=== PATIENT | male | born 1960 | race Caucasian/White ===

== ENCOUNTER 2016-09-11 12:46 | Emergency (ER) | payer MEDICAID | END 2016-09-11 16:02 | disposition home or self-care (01) | LOC: D.ER 12:46 | DX: G56.02 Carpal tunnel syndrome, left upper limb (principal); I10 Essential (primary) hypertension; F17.200 Nicotine dependence, unspecified, uncomplicated ==

== ENCOUNTER 2016-11-20 10:31 | Emergency (ER) | payer MEDICAID ==
[2016-11-20 11:53] LABS: BASOPHILS 0.5 % (0.0-2.0); EOSINOPHILS 6.9 % (0-7); HEMATOCRIT 46.4 % (42.0-54.0); HEMOGLOBIN 15.9 g/dL (13.5-17.5); IMMATURE GRANULOCYTES 0.4 % (0-5); LYMPHOCYTES 26.3 % (15-50); MCH 30.9 pg (26.0-34.0); MCHC 34.3 g/dL (31.0-37.0); MCV 90.1 fL (80.0-100.0); MEAN PLATELET VOLUME 9.1 fL (7.4-10.4); MONOCYTES 9.2 % (2-11); NEUTROPHILS 56.7 % (40-80); PLATELET COUNT 235 10x3/uL (130-400); RBC 5.15 10x6/uL (4.20-6.10); RDW 11.9 % (11.5-14.5); WBC 8.6 10x3/uL (4.8-10.8)
[2016-11-20 12:08] LABS: ALBUMIN 3.9 g/dL (3.4-5.0); BILIRUBIN - TOTAL 0.28 mg/dL (0.2-1.3); CALCIUM 9.6 mg/dL (8.5-10.1); CARBON DIOXIDE 30.3 mmol/L (21.0-32.0); CREATININE - SERUM 1.1 mg/dL (0.6-1.3); POTASSIUM - SERUM 4.3 mmol/L (3.5-5.1); PROTEIN - SERUM 7.9 g/dL (6.4-8.2)
== END 2016-11-20 13:30 | disposition home or self-care (01) ==
LOC: D.ER 10:31
PROVIDERS: Family Medicine
DX: J06.9 Acute upper respiratory infection, unspecified (principal); J20.9 Acute bronchitis, unspecified; I10 Essential (primary) hypertension

== ENCOUNTER 2019-03-29 21:25 | Emergency (ER) | payer MEDICAID ==
[~2019-03-29] VITALS: Ht 188 cm; Wt 127.3 kg
[2019-03-29 21:35] VITALS: Ht 188 cm; Wt 127.3 kg
[2019-03-29] MEDS ORDERED: PRINIVIL20 MG PO (21:36)
[2019-03-29] MEDS ORDERED: METOPROLOL TART50 MG PO (21:36)
[2019-03-29] MEDS ORDERED: NORVASC5 MG PO (21:37)
[2019-03-29] MEDS ORDERED: HCTZ25 MG PO (21:37)
[2019-03-29 22:44] LABS: BASOPHILS 0.3 % (0-2); EOSINOPHILS 7.4 % (0-7); HEMATOCRIT 40.7 % (42.0-54.0); HEMOGLOBIN 14.1 g/dL (13.5-17.5); IMMATURE GRANULOCYTES 0.1 % (0-5); LYMPHOCYTES 36.4 % (15-50); MCH 31.1 pg (26.0-34.0); MCHC 34.6 g/dL (31.0-37.0); MCV 89.6 fL (80.0-100.0); MEAN PLATELET VOLUME 9.4 fL (7.4-10.4); MONOCYTES 6.1 % (2-11); NEUTROPHILS 49.7 % (40-80); PLATELET COUNT 205 10x3/uL (130-400); RBC 4.54 10x6/uL (4.20-6.10); WBC 7.2 10x3/uL (4.8-10.8)
[2019-03-29 22:59] LABS: ALBUMIN 3.8 g/dL (3.4-5.0); ALKALINE PHOSPHATASE 91 U/L (46-116); ALT (SGPT) 24 U/L (10-68); BILIRUBIN - TOTAL 0.25 mg/dL (0.2-1.3); CALC OSMOLALITY 292 mosm/kg (275-300); CALCIUM 8.6 mg/dL (8.5-10.1); CHLORIDE - SERUM 108 mmol/L (98-107); CREATININE - SERUM 2.1 mg/dL (0.6-1.3); GLUCOSE 91 mg/dL (74-106); POTASSIUM - SERUM 4.4 mmol/L (3.5-5.1); PROTEIN - SERUM 7.7 g/dL (6.4-8.2); SODIUM 143 mmol/L (136-145); UREA NITROGEN 36 mg/dL (7-18); eGFR NON AFRICAN AMERICAN 34 mL/min (90-120)
[2019-03-29 23:13] LABS: CKMB 1.5 U/L (0.0-3.6); CREATINE KINASE 103 UL (21-232); PRO BNP 436 pg/mL (0-125); TROPONIN-I < 0.017 ng/mL (0.000-0.060)
[2019-03-29] MEDS ORDERED: LEVAQUIN750 MG PO (23:48)
[2019-03-30 00:11] VITALS: BP 138/94
== END 2019-03-30 00:12 | disposition home or self-care (01) ==
LOC: D.ER 21:25
PROVIDERS: Emergency Medicine
DX: J18.9 Pneumonia, unspecified organism (principal)

== ENCOUNTER 2019-10-31 23:32 | Emergency (ER) | payer MEDICAID ==
[~2019-10-31] VITALS: Ht 188 cm; Wt 131.8 kg
[~2019-10-31 23:32] MED LIST: HCTZ25 MG PO; LEVAQUIN750 MG PO; METOPROLOL TART50 MG PO; NORVASC5 MG PO; PRINIVIL20 MG PO
[2019-10-31 23:38] VITALS: Ht 188 cm; Wt 131.8 kg
[2019-11-01 00:18] LABS: BASOPHILS 0.5 % (0-2); EOSINOPHILS 6.1 % (0-7); HEMATOCRIT 39.1 % (42.0-54.0); HEMOGLOBIN 13.6 g/dL (13.5-17.5); IMMATURE GRANULOCYTES 0.4 % (0-5); LYMPHOCYTES 30.2 % (15-50); MCHC 34.8 g/dL (31.0-37.0); MCV 89.1 fL (80.0-100.0); MEAN PLATELET VOLUME 9.1 fL (7.4-10.4); MONOCYTES 8.1 % (2-11); NEUTROPHILS 54.7 % (40-80); PLATELET COUNT 311 10x3/uL (130-400); RBC 4.39 10x6/uL (4.20-6.10); RDW 11.9 % (11.5-14.5); WBC 8.2 10x3/uL (4.8-10.8)
[2019-11-01 00:29] LABS: APTT 29.7 SECONDS (22.8-39.4); INR 0.95 (0.85-1.17); PROTIME 12.6 SECONDS (11.6-15.0)
[2019-11-01 00:30] LABS: CALCIUM 8.8 mg/dL (8.5-10.1); CARBON DIOXIDE 25.9 mmol/L (21.0-32.0); CREATININE - SERUM 2.3 mg/dL (0.6-1.3); POTASSIUM - SERUM 3.9 mmol/L (3.5-5.1)
[2019-11-01 00:35] LABS: ALBUMIN 3.6 g/dL (3.4-5.0); BILIRUBIN - TOTAL 0.24 mg/dL (0.2-1.3); PROTEIN - SERUM 7.7 g/dL (6.4-8.2)
[2019-11-01] MEDS ORDERED: CLEOCIN HCL150 MG PO (00:49)
[2019-11-01] MEDS ORDERED: BUMEX2 MG PO (00:49)
[2019-11-01] MEDS ORDERED: K-TAB10 MEQ PO (00:49)
[2019-11-01 02:02] VITALS: BP 159/94
== END 2019-11-01 02:03 | disposition home or self-care (01) ==
LOC: D.ER 23:32
PROVIDERS: Emergency Medicine
DX: R60.9 Edema, unspecified (principal); S80.811A Abrasion, right lower leg, initial encounter; L08.9 Local infection of the skin and subcutaneous tissue, unspecified; N18.9 Chronic kidney disease, unspecified; I10 Essential (primary) hypertension; Z86.73 Personal history of transient ischemic attack (TIA), and cerebral infarction without residual deficits; Z72.0 Tobacco use; K21.9 Gastro-esophageal reflux disease without esophagitis

== ENCOUNTER 2020-03-28 00:13 | Inpatient (IN) | payer MEDICAID ==
[2020-03-28] VITALS (10 sets, daily range): BP systolic 99–169; BP diastolic 64–102; Ht 188 cm; Wt 133.5 kg
[~2020-03-28] VITALS: Ht 188 cm; Wt 133.5 kg
[~2020-03-28 00:13] MED LIST changes: +BUMEX2 MG PO; +CLEOCIN HCL150 MG PO; +K-TAB10 MEQ PO
[2020-03-28 00:51] LABS: BASOPHILS 0.4 % (0-2); EOSINOPHILS 5.4 % (0-7); HEMATOCRIT 44.9 % (42.0-54.0); HEMOGLOBIN 14.3 g/dL (13.5-17.5); IMMATURE GRANULOCYTES 0.4 % (0-5); LYMPHOCYTES 26.2 % (15-50); MCHC 31.8 g/dL (31.0-37.0); MCV 94.1 fL (80.0-100.0); MEAN PLATELET VOLUME 8.8 fL (7.4-10.4); NEUTROPHILS 57.6 % (40-80); PLATELET COUNT 293 10x3/uL (130-400); RBC 4.77 10x6/uL (4.20-6.10); RDW 12.5 % (11.5-14.5); WBC 7.8 10x3/uL (4.8-10.8)
[2020-03-28 01:02] LABS: CALC OSMOLALITY 293 mosm/kg (275-300); CALCIUM 8.4 mg/dL (8.5-10.1); CARBON DIOXIDE 30.4 mmol/L (21.0-32.0); CHLORIDE - SERUM 108 mmol/L (98-107); CREATININE - SERUM 1.8 mg/dL (0.6-1.3); GLUCOSE 137 mg/dL (74-106); POTASSIUM - SERUM 3.9 mmol/L (3.5-5.1); SODIUM 143 mmol/L (136-145); UREA NITROGEN 32 mg/dL (7-18); eGFR NON AFRICAN AMERICAN 41 mL/min (90-120)
[2020-03-28 01:14] LABS: ALBUMIN 3.3 g/dL (3.4-5.0); ALKALINE PHOSPHATASE 114 U/L (30-120); ALT (SGPT) 24 U/L (10-68); AMYLASE - SERUM 59 U/L (25-115); LIPASE 278 U/L (73-393); PROTEIN - SERUM 7.3 g/dL (6.4-8.2); TROPONIN-I < 0.017 ng/mL (0.000-0.060)
[2020-03-28 01:49] LABS: BILIRUBIN NEGATIVE (NEGATIVE); GLUCOSE 50 mg/dL (NEGATIVE); KETONE NEGATIVE (NEGATIVE); NITRITE NEGATIVE (NEGATIVE); UROBILINOGEN NORMAL (NORMAL)
--- NOTE | 2020-03-28 02:20 | NUR ---
RECEIVED FROM ER VIA STRETCHER AND PT AMBULATED TO BED. GAIT IS UNSTEADY. ALERT AND ORIENTED BUT IRRITABLE. 4X4S OVER OPEN ULCER ON RLE AND COVERED WITH SOCK. RLE IS RED WITH BLISTERS. DENIES PAIN AT THIS TIME. RECEIVED MORPHINE IN ER. NS @ 125 MLHR INFUSING IN RT WRIST. RESP NONLABORED. BBS EXP WHEEZES. RARE NONPROD COUGH. EDEMA NOTED TO BLE. PT WAS INCONT OF URINE. PLACED PT IN GOWN. V/S STABLE. PT IS POOR HISTORIAN AND UNABLE TO NAME MEDS OR TELL WHEN HE TOOK THEM LAST. STATES HE LIVES WITH HIS GIRLFRIEND BUT COULDNT PROVIDE AN EMERGENCY CONTACT NUMBER. SR ELEVATED X2. CL IN REACH. DROWSY. BED ALARM IN USE FOR PT SAFETY.
[2020-03-28 03:42] LABS: INR 0.81 (0.85-1.17); PROTIME 11.2 SECONDS (11.6-15.0)
--- NOTE | 2020-03-28 08:10 | NUR ---
PT SUPINE IN BED WITH EYES CLOSED, BREATING EVEN AND UNLABORE. NO S/S OF DISTRESS NOTED AT THIS TIME. EASILY AROUSES TO VOICE. HUNG IV ABX AND PLACED NICOTINE PATCH AT THIS TIME. TOLERATING WELL. REQUESTED COFFEE, WILL PROVIDE PROMPTLY. DENIES ANY OTHER NEEDS AT THIS TIME. BED IN LOWEST POSITION, BED RAILS X2, BED ALARM ON AND FUNCTIONAL, CALL LIGHT WITHIN REACH. WILL CONTINUE TO MONITOR.
[2020-03-28] MEDS ORDERED: NORVASC5 MG PO (10:15)
[2020-03-28] MEDS ORDERED: LEXAPRO20 MG PO (10:16)
--- NOTE | 2020-03-28 11:21 | NUR ---
HUNG IV ABX, TOLERATING WELL. RESTING COMFORTABLY IN BED, PROVIDED WITH A DRINK. DENIES ANY OTHER NEEDS. WILL CONTINUE TO MONITOR.
--- NOTE | 2020-03-28 12:35 | NUR ---
GAVE PO MEDICATIONS THAT WERE RESTARTED TODAY FROM HOME MEDICATIONS. PT UPRIGHT IN BED EATING LUNCH. ASSESSMENT PERFORMED AT THIS TIME. DENIES ANY NEEDS. WILL CONTINUE TO MONITOR.
--- NOTE | 2020-03-28 14:50 | NUR ---
IV ABX HUNG, TOLERATING WELL. REQUESTING PAIN MEDICATION, WILL PROVIDE. DENIES ANY OTHER NEEDS, RESTING COMFORTABLY IN BED. WILL CONTINUE TO MONITOR.
--- NOTE | 2020-03-28 15:06 | NUR ---
PRN MORPHINE FOR 9/10 PAIN IN RIGHT LEG. RESTING COMFORTABLY IN BED. DENIES ANY NEEDS. WILL CONTINUE TO MONITOR.
--- NOTE | 2020-03-28 18:45 | NUR ---
I have reviewed this patient and I concur with the Shift Assessment completed by the Licensed Practical Nurse today this shift.
--- NOTE | 2020-03-28 19:35 | NUR ---
LYING IN BED. ALERT AND ORIENTED TO SELF AND PLACE. CONFUSED TO TIME. HAS HX OF CVA WITH MEMORY PROBLEMS. BED ALARM IN USE. RESP IRREG. RATES PAIN IN RLE 10. MEDICATED WITH MORPHINE AND ZOFRAN. ABD IS DISTENDED AND FIRM. BLE ARE DISCOLORED BROWN. DRSG NOTED TO RLE. BLE ELEVATED ON PILLOWS. USES URINAL. NS @ 125 MLHR INFUSING IN RT WRIST. SR ELEVATED X2. CL IN REACH.
--- NOTE | 2020-03-28 22:45 | NUR ---
C/O PAIN IN LT ANKLE/FOOT. STATES HE HAS GOUT. REPORTED TO DOMINICK MEDINA WHO IS HERE. INSTRUCTED TO GIVE TYLENOL.
[2020-03-29] VITALS: BP 139/83
[2020-03-29 04:00] VITALS: BP 151/100
--- NOTE | 2020-03-29 04:10 | NUR ---
HAS RESTED WELL AFTER RECEIVING TYLENOL. CL IN REACH. BRUSH MACHINE SETTER STATES WOUND CULTURE SHOWS STAPH AUREUS AND PT NEEDS TO BE IN CONTACT ISO UNTIL MRSA IS RULED OUT. PT PLACED ISO AT THIS TIME.
[2020-03-29 08:00] VITALS: BP 166/84
[2020-03-29 09:07] LABS: BASOPHILS 0.2 % (0-2); EOSINOPHILS 4.2 % (0-7); HEMATOCRIT 42.1 % (42.0-54.0); HEMOGLOBIN 13.7 g/dL (13.5-17.5); IMMATURE GRANULOCYTES 0.3 % (0-5); LYMPHOCYTES 24.2 % (15-50); MCH 30.2 pg (26.0-34.0); MCHC 32.5 g/dL (31.0-37.0); MCV 92.7 fL (80.0-100.0); MEAN PLATELET VOLUME 8.7 fL (7.4-10.4); MONOCYTES 11.2 % (2-11); NEUTROPHILS 59.9 % (40-80); PLATELET COUNT 258 10x3/uL (130-400); RBC 4.54 10x6/uL (4.20-6.10); RDW 12.3 % (11.5-14.5); WBC 9.4 10x3/uL (4.8-10.8)
[2020-03-29 09:14] LABS: ANION GAP 8.5 mmol/L (8-16); BILIRUBIN - TOTAL 0.57 mg/dL (0.2-1.3); CALCIUM 8.5 mg/dL (8.5-10.1); CARBON DIOXIDE 30.7 mmol/L (21.0-32.0); CREATININE - SERUM 1.8 mg/dL (0.6-1.3); MAGNESIUM - SERUM 1.7 mg/dL (1.8-2.4); POTASSIUM - SERUM 4.2 mmol/L (3.5-5.1); PROTEIN - SERUM 6.6 g/dL (6.4-8.2)
[2020-03-29 12:11] VITALS: BP 144/77
--- NOTE | 2020-03-29 16:00 | NUR ---
SPOKE WITH DR. LEIGH REGARDING YANET BOOT ORDER. INFORMED HIM THAT THE WOUND CARE NURSE WAS OUT UNTIL WEEK AFTER NEXT TO ASSESS WOUND AND DETERMINE IF AN YANET BOOT WAS APPROPRIATE OR NOT. HE INFORMED STAFF THAT HE HAD SPOKEN WITH AAKASH REGARDING MATTER AND PUT WOUND CARE INTO THEIR HANDS.
[2020-03-29 16:08] VITALS: BP 147/93
[2020-03-29 20:00] VITALS: BP 131/79
--- NOTE | 2020-03-30 01:51 | NUR ---
RIGHT WRIST IV LEAKING AND NO LONGER PATENT. REMOVED IV CATHETER INTACT. IV RESITED TO LEFT HAND BY HERVE MARQUEZ. IV ABX RESUMED. PT C/O LEG AND ARM PAIN 9/10. GAVE MORPHINE 4 MG IV PUSH. NO OTHER NEEDS. WILL REASSESS AND CONTINUE TO MONITOR.
[2020-03-30 05:36] LABS: BASOPHILS 0.2 % (0-2); EOSINOPHILS 4.9 % (0-7); HEMATOCRIT 40.7 % (42.0-54.0); HEMOGLOBIN 13.3 g/dL (13.5-17.5); IMMATURE GRANULOCYTES 0.3 % (0-5); LYMPHOCYTES 26.7 % (15-50); MCHC 32.7 g/dL (31.0-37.0); MCV 91.9 fL (80.0-100.0); MEAN PLATELET VOLUME 8.8 fL (7.4-10.4); MONOCYTES 10.2 % (2-11); NEUTROPHILS 57.7 % (40-80); PLATELET COUNT 268 10x3/uL (130-400); RBC 4.43 10x6/uL (4.20-6.10); RDW 12.2 % (11.5-14.5); WBC 8.7 10x3/uL (4.8-10.8)
[2020-03-30 06:06] LABS: ALBUMIN 2.8 g/dL (3.4-5.0); ANION GAP 9.8 mmol/L (8-16); BILIRUBIN - TOTAL 0.53 mg/dL (0.2-1.3); CALCIUM 8.9 mg/dL (8.5-10.1); CARBON DIOXIDE 29.9 mmol/L (21.0-32.0); CREATININE - SERUM 1.9 mg/dL (0.6-1.3); MAGNESIUM - SERUM 1.9 mg/dL (1.8-2.4); POTASSIUM - SERUM 3.7 mmol/L (3.5-5.1); PROTEIN - SERUM 6.8 g/dL (6.4-8.2)
[2020-03-30 08:13] VITALS: BP 151/88
--- NOTE | 2020-03-30 11:48 | NUR ---
AWAKE AND WITHOUT NEEDS.ISOLATION MAINTAINED.
[2020-03-30 11:56] VITALS: BP 149/89
--- NOTE | 2020-03-30 14:54 | NUR ---
Nutrition Follow-up: Diet: Cardiac PO intake: 100% x 3 Last BM: none recorded since admit. WT: 294.3# (03/28/20) Meds noted: SSI, HCTZ. Labs noted: GFR 38(L), Glu 107(H), ALb 2.8(L) Skin: venous statis to RLE Recommend continue current diet. RD followoing.
[2020-03-30 15:22] VITALS: BP 111/72
[2020-03-30 20:00] VITALS: BP 124/83
--- NOTE | 2020-03-30 22:00 | NUR ---
PT C/O RIGHT LEG PAIN 05/17. GAVE MORPHINE MG IV PUSH. SOAKED GAUZE DRESSING WITH WOUND CLEANSER TO REMOVE DRESSING STUCK TO WOUND. CLEANSED WOUND AND PATTED DRY. DRESSED WITH XEROFORM, NON-ADHERENT PAD, 4X4 AND WRAPPED WITH KERLIX. ELEVATED RLE ON PILLOW. NO OTHER NEEDS. WILL REASSESS AND CONTINUE TO MONITOR.
[2020-03-31 04:00] VITALS: BP 131/80
[2020-03-31 06:20] LABS: BASOPHILS 0.1 % (0-2); EOSINOPHILS 5.7 % (0-7); HEMATOCRIT 41.7 % (42.0-54.0); HEMOGLOBIN 13.6 g/dL (13.5-17.5); IMMATURE GRANULOCYTES 0.4 % (0-5); LYMPHOCYTES 26.9 % (15-50); MCH 30.1 pg (26.0-34.0); MCHC 32.6 g/dL (31.0-37.0); MCV 92.3 fL (80.0-100.0); MEAN PLATELET VOLUME 8.8 fL (7.4-10.4); MONOCYTES 9.1 % (2-11); NEUTROPHILS 57.8 % (40-80); PLATELET COUNT 300 10x3/uL (130-400); RBC 4.52 10x6/uL (4.20-6.10); RDW 12.2 % (11.5-14.5); WBC 7.2 10x3/uL (4.8-10.8)
[2020-03-31 06:50] LABS: ALBUMIN 2.7 g/dL (3.4-5.0); ANION GAP 9.2 mmol/L (8-16); BILIRUBIN - TOTAL 0.4 mg/dL (0.2-1.3); CALCIUM 8.7 mg/dL (8.5-10.1); CARBON DIOXIDE 31.5 mmol/L (21.0-32.0); CREATININE - SERUM 1.7 mg/dL (0.6-1.3); POTASSIUM - SERUM 3.7 mmol/L (3.5-5.1); PROTEIN - SERUM 7.1 g/dL (6.4-8.2)
--- NOTE | 2020-03-31 07:10 | NUR ---
RECEIVED REPORT, ASSUMED CARE, SLEEPING, AROUSED EASILY TO VOICE, DENIES NEEDS, CALL LIGHT IN REACH, BED LOWEST POSITION, DRESSING TO RLE CDI, IV TO RFA PATENT, URNIAL AT BEDSIDE, BREATHING EVEN UNLABORED
[2020-03-31 10:44] VITALS: BP 132/60
--- NOTE | 2020-03-31 16:37 | NUR ---
I have reviewed this patient and I concur with the Shift Assessment completed by the Licensed Practical Nurse today this shift.
[2020-03-31 17:43] VITALS: BP 130/70
[2020-03-31 20:00] VITALS: BP 124/70
[2020-04-01 04:00] VITALS: BP 153/92
[2020-04-01 07:44] LABS: BASOPHILS 0.4 % (0-2); EOSINOPHILS 7.3 % (0-7); HEMATOCRIT 41.1 % (42.0-54.0); HEMOGLOBIN 13.7 g/dL (13.5-17.5); IMMATURE GRANULOCYTES 0.3 % (0-5); LYMPHOCYTES 27.8 % (15-50); MCH 30.2 pg (26.0-34.0); MCHC 33.3 g/dL (31.0-37.0); MCV 90.7 fL (80.0-100.0); MEAN PLATELET VOLUME 8.8 fL (7.4-10.4); MONOCYTES 8.8 % (2-11); NEUTROPHILS 55.4 % (40-80); PLATELET COUNT 305 10x3/uL (130-400); RBC 4.53 10x6/uL (4.20-6.10); RDW 12.2 % (11.5-14.5); WBC 7.3 10x3/uL (4.8-10.8)
--- NOTE | 2020-04-01 07:55 | NUR ---
RESTING COMFORTABLY IN BED WITH EYES CLOSED, NO CURRENT S/S OF DISTRESS. IV LOCATED TO RIGHT FOREARM RUNNING NS @ 30ML/HR. CURRENTLY RCVING 2L VIA NC. WILL CONT TO MONITOR.
[2020-04-01 08:00] VITALS: BP 143/87
[2020-04-01 08:00] LABS: ALBUMIN 2.8 g/dL (3.4-5.0); ANION GAP 9.4 mmol/L (8-16); BILIRUBIN - TOTAL 0.3 mg/dL (0.2-1.3); CALCIUM 8.9 mg/dL (8.5-10.1); CARBON DIOXIDE 31.2 mmol/L (21.0-32.0); CREATININE - SERUM 1.7 mg/dL (0.6-1.3); POTASSIUM - SERUM 3.6 mmol/L (3.5-5.1); PROTEIN - SERUM 7.2 g/dL (6.4-8.2)
--- NOTE | 2020-04-01 09:21 | NUR ---
PT STILL SLEEPING WHEN WENT BACK IN TO GIVE MORNING MEDS, TOOK MEDICATION BUT REFUSED TO SIT UP, GET OUT OF BED, AND EAT HIS BREAKFAST, TOLD ME TO TURN THE LIGHT OFF SO HE COULD GO BACK TO SLEEP.
[2020-04-01 13:30] VITALS: BP 145/82
[2020-04-01 18:26] VITALS: BP 143/83
[2020-04-01 20:00] VITALS: BP 132/81
[2020-04-02] VITALS: BP 149/86
[2020-04-02 04:00] VITALS: BP 133/83
[2020-04-02 05:29] LABS: ALBUMIN 2.9 g/dL (3.4-5.0); ANION GAP 10.8 mmol/L (8-16); BILIRUBIN - TOTAL 0.41 mg/dL (0.2-1.3); CALCIUM 8.9 mg/dL (8.5-10.1); CARBON DIOXIDE 31.6 mmol/L (21.0-32.0); CREATININE - SERUM 1.6 mg/dL (0.6-1.3); POTASSIUM - SERUM 3.4 mmol/L (3.5-5.1); PROTEIN - SERUM 7.2 g/dL (6.4-8.2)
[2020-04-02 05:33] LABS: BASOPHILS 0.3 % (0-2); EOSINOPHILS 6.4 % (0-7); HEMOGLOBIN 13.9 g/dL (13.5-17.5); IMMATURE GRANULOCYTES 0.3 % (0-5); LYMPHOCYTES 29.2 % (15-50); MCH 30.1 pg (26.0-34.0); MCHC 33.1 g/dL (31.0-37.0); MCV 90.9 fL (80.0-100.0); MEAN PLATELET VOLUME 8.9 fL (7.4-10.4); MONOCYTES 7.5 % (2-11); NEUTROPHILS 56.3 % (40-80); PLATELET COUNT 352 10x3/uL (130-400); RBC 4.62 10x6/uL (4.20-6.10); RDW 12.2 % (11.5-14.5); WBC 7.1 10x3/uL (4.8-10.8)
--- NOTE | 2020-04-02 07:05 | NUR ---
SLEEPING, WAKES EASY TO VOICE, DENIES NEEDS, BREATHING EVEN UNLABORED, CALL LIGHT IN REACH, BED LOWEST POSITION, URINAL AT BEDSIDE, DRESSING TO RLE CDI, WILL CONTINUE POC
[2020-04-02 08:41] VITALS: BP 135/82
[2020-04-02 11:45] VITALS: BP 147/87
--- NOTE | 2020-04-02 12:13 | NUR ---
VANC HELD TROUGH 23.5
[2020-04-02 16:40] VITALS: BP 143/89
[2020-04-02 20:00] VITALS: BP 131/75
--- NOTE | 2020-04-02 20:00 | NUR ---
ALERT RESTING IN BED, DENIES NEEDS AT THIS TIME, CALL LIGHT IN REACH
[2020-04-03] VITALS: BP 168/82
[2020-04-03 04:00] VITALS: BP 161/87
[2020-04-03 05:20] LABS: BASOPHILS 0.4 % (0-2); EOSINOPHILS 5.7 % (0-7); HEMATOCRIT 41.9 % (42.0-54.0); HEMOGLOBIN 13.8 g/dL (13.5-17.5); IMMATURE GRANULOCYTES 0.3 % (0-5); LYMPHOCYTES 21.3 % (15-50); MCH 29.9 pg (26.0-34.0); MCHC 32.9 g/dL (31.0-37.0); MCV 90.9 fL (80.0-100.0); MEAN PLATELET VOLUME 8.8 fL (7.4-10.4); NEUTROPHILS 65.3 % (40-80); PLATELET COUNT 344 10x3/uL (130-400); RBC 4.61 10x6/uL (4.20-6.10); RDW 12.2 % (11.5-14.5); WBC 7.3 10x3/uL (4.8-10.8)
[2020-04-03 05:27] LABS: ANION GAP 11.5 mmol/L (8-16); BILIRUBIN - TOTAL 0.25 mg/dL (0.2-1.3); CARBON DIOXIDE 26.5 mmol/L (21.0-32.0); CREATININE - SERUM 1.8 mg/dL (0.6-1.3); PROTEIN - SERUM 7.2 g/dL (6.4-8.2)
--- NOTE | 2020-04-03 07:52 | NUR ---
ALERT AND ORIENTED. LUNGS CLEAR BILATERALLY. HEART SOUNDS S1 AND S2 HEARD IN ALL [place]. BOWEL SOUNDS ACTIVE X 4. DRSG C/D/I TO RLE. IV TO LFA PATENT WITHOUT REDNESS. DENIES NEEDS. BED LOW. CALL CURIEL AND PERSONAL ITEMS IN REACH. WILL CONTINUE TO MONITOR.
--- NOTE | 2020-04-03 08:14 | NUR ---
DRSG CHANGED TO RLE D/T DRSG SOILED.
[2020-04-03 08:42] VITALS: BP 150/97
--- NOTE | 2020-04-03 11:33 | NUR ---
PATIENT STATES WANTS "SOMETHING FOR ANXIETY." ORE CRUSHER IN ROOM AWARE. NO NEW ORDERS AT THIS TIME.
[2020-04-03] MEDS ORDERED: SYNTHROID25 MCG PO (11:36)
[2020-04-03] MEDS ORDERED: FLORAJEN3 CAPS460 MG PO (11:36)
[2020-04-03] MEDS ORDERED: TESSALON PERLE100 MG PO (11:36)
[2020-04-03] MEDS ORDERED: NICODERM CQ1 EAC3 TRANSDERM (11:36)
[2020-04-03] MEDS ORDERED: PROTONIX40 MG PO (11:36)
[2020-04-03] MEDS ORDERED: MUCINEX600 MG PO (11:36)
[2020-04-03] MEDS ORDERED: CLINDAMYCIN HC300 MG PO (11:38)
[2020-04-03 12:45] VITALS: BP 136/90
--- NOTE | 2020-04-03 14:13 | MORECARE ---
CASE MANAGEMENT DISCHARGE SUMMARY PATIENT: YASSINE CHEN UNIT: [id number] ADM DATE: 03/28/20 AGE: 59 : 56 SEX: M ROOM/BED: D.2230 AUTHOR: BIANCA LUNA PHYSICIAN: REFERRING PHYSICIAN: SHANI PINA MD DATE OF SERVICE: 04/03/20 Discharge Plan Patient Name: YASSINE CHEN Facility: [facility]:[place] : 1960 Planned Disposition: Anticipated Discharge Date: Discharge Date: Expected LOS: Initial Reviewer: [email or web address] Initial Review Date: 03/28/2020 Generated: 04/03/20 3:12 pm Comments DCP- Discharge Planning Updated by [email or web address]: Alethea Garcia on 04/03/20 1:[address] Patient Name: YASSINE CHEN Admission Status: ER Accout number: [id number] Admission Date: 03-28-2020 : 1960 Admission Diagnosis:CELLULITIS OF RIGHT LOWER LIMB Attending: MATHEW PINA Current LOS: 6 Anticipated DC Date: Planned Disposition: Primary Insurance: [place]ICAID [place] Discharge Planning Comments: CM met with patient at bedside after explaining CM role and obtaining verbal consent. CM discussed availability / needs of home health, REHAB and medical equipment. WILL BE INTERESTED IN HOME HEALTH. NIHARIKA SIGNED FOR [facility] . REFERRAL FAXED. CM TO FOLLOW AND ASSIST. Role Player: Alethea Garcia DCPIA - Discharge Planning Initial Assessment Updated by [email or web address]: Alethea Garcia on 04/03/20 2:08 pm * Is the patient Alert and Oriented? Yes * PCP LORIE * Preadmission Environment Home with Family * ADLs Independent * Other Equipment WALKER * Community resources currently utilized None * Additional services required to return to the preadmission environment? Yes * Can the patient safely return to the preadmission environment? Yes * Has this patient been hospitalized within the prior 30 days at any hospital? No External Providers External Provider: [facility] Next Contact Date: Service Request Date: Service Type: Resolution: Reviewer: Comments: Patient Name: YASSINE CHEN Page [phone] at 1413 All edits/amendments must be made on the electronic document DICTATION DATE: 04/03/201412 MACHINE COIL ASSEMBLER: ARIC 04/03/201412 RPT#: [id number] DC DATE: STATUS: ADM IN [facility] [address] [facility] [place] [address] END OF REPORT
--- NOTE | 2020-04-03 14:20 | NUR ---
IV REMOVED FROM LFA FOR DISCHARGE. DRSG CHANGE SUPPLIES SENT HOME WITH PATIENT AND EDUCATION PROVIDED.
--- NOTE | 2020-04-03 14:48 | NUR ---
DISCHARGE EDUCATION PROVIDED BOTH WRITTEN AND VERBAL. VERBALIZED UNDERSTANDING. DENIES FURTHER QUESTIONS. PATIENT DC HOME WITH ALL BELONGINGS.
== END 2020-04-03 14:48 | disposition home health service (06) | DRG 603 ==
LOC: D.ER 00:13 → D.MS 01:07
PROVIDERS: Family Medicine; ADMIT Emergency Medicine; ATTEND Emergency Medicine
DX: L03.115 Cellulitis of right lower limb (principal); N17.9 Acute kidney failure, unspecified; L97.919 Non-pressure chronic ulcer of unspecified part of right lower leg with unspecified severity; I10 Essential (primary) hypertension; F41.8 Other specified anxiety disorders; R42 Dizziness and giddiness; F17.200 Nicotine dependence, unspecified, uncomplicated; R73.9 Hyperglycemia, unspecified; A49.02 Methicillin resistant Staphylococcus aureus infection, unspecified site

== ENCOUNTER 2021-01-03 19:18 | Emergency (ER) | payer MEDICAID ==
[~2021-01-03 19:18] MED LIST changes: +ARTHROTEC 501 TAB.EC PO; +CLEOCIN HCL300 MG PO; +CLINDAMYCIN HC300 MG PO; +DAKIN'S 0.25%480 ML TOPICAL; +FLORAJEN3 CAPS460 MG PO; +HYDROCODON-ACE1 EAC7 PO; +KEFLEX500 MG PO; +LEXAPRO20 MG PO; +MUCINEX600 MG PO; +NICODERM CQ1 EAC3 TRANSDERM; +PROTONIX40 MG PO; +SYNTHROID25 MCG PO; +TESSALON PERLE100 MG PO
[2021-01-03 19:28] VITALS: BP 155/98; Ht 188 cm
[2021-01-03 19:40] LABS: BASOPHILS 0.2 % (0-2); HEMATOCRIT 46.1 % (42.0-54.0); IMMATURE GRANULOCYTES 0.2 % (0-5); LYMPHOCYTE ABS# 2.41 10x3/uL (1.32-3.57); LYMPHOCYTES 29.4 % (15-50); MCH 30.6 pg (26.0-34.0); MCHC 34.7 g/dL (31.0-37.0); MCV 88.1 fL (80.0-100.0); MEAN PLATELET VOLUME 9.1 fL (7.4-10.4); MONOCYTES 7.8 % (2-11); NEUTROPHIL ABS# 4.86 10x3/uL (1.78-5.38); NEUTROPHILS 59.4 % (40-80); PLATELET COUNT 286 10x3/uL (130-400); RBC 5.23 10x6/uL (4.20-6.10); RDW 12.3 % (11.5-14.5); WBC 8.2 10x3/uL (4.8-10.8)
[2021-01-03 19:47] LABS: APTT 27.8 SECONDS (22.8-39.4); INR 0.97 (0.85-1.17); PROTIME 11.9 SECONDS (11.6-15.0)
[2021-01-03 19:50] LABS: CALC OSMOLALITY 281 mosm/kg (275-300); CALCIUM 9.7 mg/dL (8.5-10.1); CARBON DIOXIDE 28.8 mmol/L (21.0-32.0); CHLORIDE - SERUM 102 mmol/L (98-107); CREATININE - SERUM 1.5 mg/dL (0.6-1.3); GLUCOSE 132 mg/dL (74-106); POTASSIUM - SERUM 4.5 mmol/L (3.5-5.1); SODIUM 137 mmol/L (136-145); UREA NITROGEN 30 mg/dL (7-18); eGFR NON AFRICAN AMERICAN 50 mL/min (90-120)
[2021-01-03 20:06] LABS: ALBUMIN 3.6 g/dL (3.4-5.0); ALKALINE PHOSPHATASE 106 U/L (30-120); ALT (SGPT) 41 U/L (10-68); BILIRUBIN - TOTAL 0.39 mg/dL (0.2-1.3); CKMB 0.9 U/L (0.0-3.6); CREATINE KINASE 104 UL (21-232); MAGNESIUM - SERUM 2.1 mg/dL (1.8-2.4); PROTEIN - SERUM 7.7 g/dL (6.4-8.2); THYROID STIMULATING HORMONE 4.73 uIU/mL (0.36-3.74)
[2021-01-03 20:10] LABS: TROPONIN-I < 0.017 ng/mL (0.000-0.060)
== END 2021-01-03 21:01 | disposition home or self-care (01) ==
LOC: D.ER 19:18
PROVIDERS: Emergency Medicine
DX: R20.2 Paresthesia of skin (principal); Z86.73 Personal history of transient ischemic attack (TIA), and cerebral infarction without residual deficits; I10 Essential (primary) hypertension; J45.909 Unspecified asthma, uncomplicated; R53.1 Weakness

== ENCOUNTER 2021-01-22 22:20 | Emergency (ER) | payer MEDICAID ==
[~2021-01-22] VITALS: Ht 188 cm; Wt 125.0 kg
[2021-01-22 22:40] VITALS: Ht 188 cm; Wt 125.0 kg
[2021-01-22 23:29] LABS: BASOPHILS 1.2 % (0-2); EOSINOPHILS 5.9 % (0-7); HEMATOCRIT 46.8 % (42.0-54.0); HEMOGLOBIN 15.9 g/dL (13.5-17.5); LYMPHOCYTES 25.3 % (15-50); MCH 30.2 pg (26.0-34.0); MCHC 33.9 g/dL (31.0-37.0); MONOCYTES 8.8 % (2-11); NEUTROPHILS 58.8 % (40-80); PLATELET COUNT 310 10x3/uL (130-400); RBC 5.26 10x6/uL (4.20-6.10); WBC 7.3 10x3/uL (4.8-10.8)
[2021-01-22 23:38] LABS: CALC OSMOLALITY 291 mosm/kg (275-300); CARBON DIOXIDE 32.1 mmol/L (21.0-32.0); CHLORIDE - SERUM 104 mmol/L (98-107); CREATININE - SERUM 1.7 mg/dL (0.6-1.3); GLUCOSE 101 mg/dL (74-106); POTASSIUM - SERUM 3.7 mmol/L (3.5-5.1); SODIUM 143 mmol/L (136-145); UREA NITROGEN 33 mg/dL (7-18); eGFR NON AFRICAN AMERICAN 44 mL/min (90-120)
[2021-01-22 23:55] LABS: ALBUMIN 3.5 g/dL (3.4-5.0); ALKALINE PHOSPHATASE 103 U/L (30-120); ALT (SGPT) 37 U/L (10-68); BILIRUBIN - TOTAL 0.38 mg/dL (0.2-1.3); CKMB 1.2 U/L (0.0-3.6); CREATINE KINASE 68 UL (21-232); PROTEIN - SERUM 7.5 g/dL (6.4-8.2)
[2021-01-22 23:58] LABS: TROPONIN-I < 0.017 ng/mL (0.000-0.060)
[2021-01-23 02:06] VITALS: BP 183/95
== END 2021-01-23 02:07 | disposition home or self-care (01) ==
LOC: D.ER 22:20
PROVIDERS: Family Medicine
DX: E86.0 Dehydration (principal); N17.9 Acute kidney failure, unspecified; I10 Essential (primary) hypertension; Z72.0 Tobacco use